=== PATIENT | male | born 1945 | race Hispanic/Latino ===

== ENCOUNTER 2018-08-28 12:50 | Emergency (ER) | payer OTHER ==
--- NOTE | 2018-08-28 13:39 | RAD ---
XR Hip Lt 2-3 View History: Fall. Trauma. Comparison: None. Findings: Mild vascular calcifications. Left femoral head and neck are intact. No intertrochanteric f racture. Mild degenerative disease SI joints and pubic symphysis. Impression: No acute fracture.
--- NOTE | 2018-08-28 13:40 | RAD ---
Radiograph left knee 4 views: DATE: 08/28/2018 HISTORY: Acute traumatic left knee pain after fall FINDINGS: There is no fracture or dislocation. No joint effusion. There is mild to moderate joint space narrowi ng at the medial compartment with tiny osteophytes. Tiny osteophytes at patellofemoral compartment. Lateral compartment joint space maintained without significant osteophytosis. Atherosclerosis of supe rficial femoral artery, popliteal artery, and its branches. Surgical clips in the medial distal thigh soft tissues. IMPRESSION: 1. No fracture. 2. Osteoarthrosis, predominantly mild. Mild to moderate at medial compartment.
[2018-08-28] MEDS ORDERED: Fentanyl 100 MCG/2 ML VIAL ONE (13:51)
[2018-08-28 14:20] LABS: #Eosinphils 0.1 thou/uL (0.0-0.7); #Lymphocytes 1.5 thou/uL (1.20-3.40); #Monocytes 0.5 thou/uL (0.11-0.59); #Neutrophils 3.3 thou/uL (1.40-6.50); %Basophils 0.7 % (0.0-1.0); %Lymphocytes 27.5 % (21.0-51.0); %Monocytes 8.6 % (0.0-10.0); %Neutrophils 62.2 % (42.0-75.0); Hemoglobin 13.5 g/dL (14.0-18.0); Mean Corpuscular HGB CONC 33.9 g/dL (32.0-36.0); Mean Corpuscular Hemoglobin 32.4 pg (27.0-31.0); Mean Corpuscular Volume 95.7 fL (78.0-98.0); Mean Platelet Volume 7.3 fL (7.4-10.4); Platelet Count 187 thou/uL (130-400); RBC Distribution Width 12.8 % (11.5-14.5); Red Blood Cell (RBC) Count 4.17 mill/uL (4.70-6.10); White Blood Cell (WBC) Count 5.3 thou/uL (4.8-10.8)
[2018-08-28 14:40] LABS: ALT (SGPT) 24 U/L (8-55); AST (SGOT) 25 U/L (5-34); Albumin 3.9 g/dL (3.4-4.8); Alkaline Phosphatase 80 U/L (40-150); Anion Gap 15 mmol/L (10-20); BUN (Urea Nitrogen) 17 mg/dL (8.4-25.7); Bilirubin, Total 0.6 mg/dL (0.2-1.2); CK (CPK) 100 U/L (30-200); Calc. Creatinine Clearance 0 mL/min (70-130); Calcium 8.7 mg/dL (7.8-10.44); Carbon Dioxide 22 mmol/L (23-31); Chloride 97 mmol/L (98-107); Estimated GFR-MDRD 71; Globulin 2.7 g/dL (2.4-3.5); Glucose 230 mg/dL (83-110); Potassium 4.5 mmol/L (3.5-5.1); Protein, Total 6.6 g/dL (5.8-8.1); Sodium 129 mmol/L (136-145)
[2018-08-28 14:41] LABS: Bilirubin Negative (Negative); Blood, Urine 1+ (Negative); Clarity Turbid (Clear); Glucose, Urine (Dipstick) Greater than 1000 mg/dL (Negative); Leukocyte 500 Leu/uL (Negative); Nitrite Negative (Negative); Protein, Urine (Dipstick) 50 mg/dL (Neg-Trace); Squamous Epithelial 0-3 HPF (0-3); WBC/HPF Greater than 50 HPF (0-3)
[2018-08-28 14:49] LABS: Yeast-Budding None Seen HPF (None Seen)
[2018-08-28 14:50] LABS: Bacteria/HPF 2+ HPF (None Seen)
[2018-08-28 15:02] LABS: CKMB 4.9 ng/mL (0-6.6)
[2018-08-28] MEDS ORDERED: cefTRIAXone\\ROCEPHIN 2 GM VIAL ONE (15:55)
[2018-08-28] MEDS ORDERED: Sodium Chloride 0.9% 100 ML ONE (15:55)
[2018-08-28] MEDS ORDERED: HYDROcodone/Acetaminophen 10/325 mg Tablet ONE (16:47)
[2018-08-28] MEDS ORDERED: Aspirin Chewable 81 MG TAB ONE (16:47)
--- NOTE | 2018-08-31 00:53 | EKG ---
Test Reason : Blood Pressure : / mmHG Vent. Rate : 080 BPM Atrial Rate : 080 BPM P-R Int : 142 ms QRS Dur : 110 ms QT Int : 406 ms P-R-T Axes : 019 -20 135 degrees QTc Int : 468 ms Sinus rhythm with Premature atrial complexes Septal infarct , age undetermined Confirmed by ANGELY WELDON [id number]), scientific editor SUZANNA MORELOS ([id number] on 08/31/2018 12:53:19 AM Referred By: Confirmed By:ANGELY WELDON
== END 2018-08-28 20:02 | disposition short-term general hospital (02) ==
LOC: ERS 12:50 → EEVIPCON 12:50 → ERS 20:02
DX: S80.12XA Contusion of left lower leg, initial encounter (principal); N39.0 Urinary tract infection, site not specified; R79.89 Other specified abnormal findings of blood chemistry; I25.10 Atherosclerotic heart disease of native coronary artery without angina pectoris; E78.5 Hyperlipidemia, unspecified; I10 Essential (primary) hypertension; W18.30XA Fall on same level, unspecified, initial encounter; Z79.02 Long term (current) use of antithrombotics/antiplatelets; Z79.899 Other long term (current) drug therapy; Z79.82 Long term (current) use of aspirin
CPT/HCPCS: 36415; 80053; 81003; 81015; 82550; 82553; 84484; 85025; 87086; 93005; 96365; 96375; J0696; J3010; J3490